=== PATIENT | male | born 1965 | race Caucasian/White ===

== ENCOUNTER 2019-01-17 11:10 | Emergency (ER) | payer BC, OTHER | END 2019-01-17 15:23 | disposition home or self-care (01) | LOC: JER 11:10 ==

== ENCOUNTER 2019-01-18 20:49 | Emergency (ER) | payer BC | END 2019-01-19 00:15 | disposition home or self-care (01) | LOC: JER 01-19 00:15 | PROC: 3E0333Z Introduction of Anti-inflammatory into Peripheral Vein, Percutaneous Approach (ICD-10-PCS; principal; 2019-01-18) | DX: N23 Unspecified renal colic (principal); Z87.442 Personal history of urinary calculi ==

== ENCOUNTER 2019-07-04 08:38 | Day surgery (SDC) | payer BC, OTHER ==
[2019-07-04 09:15] VITALS: BMI 26.6
[2019-07-04 10:37] VITALS: TEMP 97.9
[2019-07-04 12:13] VITALS: BP 120/79; PULSE 63
--- NOTE | 2019-07-09 18:35 | PATH ---
Surgical Pathology Report Patient Name: SKYLER CLINE [facility]. Rec. #: [id number] /Age/Gender: 1965 (Age: 53) / M Account: [id number] Location: [facility]-ENDOSCOPY Taken: 07/04/2019 Received: 07/06/2019 Reported: 07/09/2019 Physicians: Sundeep Ott M.D. Specimen(s) Received A: BX DUODENUM SECOND PORTION AND BULB B: BX ANTRUM C: BX GE JUNCTION D: BX MID ESOPHAGUS E: BX SIGMOID Clinical History Dysphagia, left upper quadrant pain, heartburn, lower abdominal pain, screening colonoscopy Postoperative diagnosis: Gastritis, duodenitis, small hiatal hernia, normal colon Final Diagnosis A. SECOND PORTION AND BULB OF DUODENUM, BIOPSY: DUODENAL MUCOSA WITH FOCAL NONSPECIFIC CHRONIC DUODENITIS. NO HISTOLOGIC EVIDENCE OF CELIAC DISEASE. B. ANTRUM, BIOPSY: GASTRIC MUCOSA WITH CHRONIC GASTRITIS. REACTIVE GASTROPATHY PRESENT. IMMUNOSTAIN FOR H. PYLORI IS NEGATIVE. NEGATIVE FOR INTESTINAL METAPLASIA. C. GE JUNCTION, BIOPSY: COLUMNAR/SQUAMOUS JUNCTIONAL MUCOSA WITH ACUTE AND CHRONIC INFLAMMATION, AND CHANGES CONSISTENT WITH REFLUX ESOPHAGITIS. NEGATIVE FOR INTESTINAL METAPLASIA. D. MID ESOPHAGUS, BIOPSY: SQUAMOUS (ESOPHAGEAL) MUCOSA WITH NO SIGNIFICANT PATHOLOGIC CHANGE. NO HISTOLOGIC EVIDENCE OF EOSINOPHILIC ESOPHAGITIS. E. SIGMOID COLON, BIOPSY: COLONIC MUCOSA WITH NO SIGNIFICANT PATHOLOGIC CHANGE. Electronically Signed Arnaud See M.D. Gross Description A. Received in formalin, labeled "second portion and bulb of duodenum biopsy" are 3 cole, irregular portions of soft tissue ranging from 0.4-0.7 cm. in greatest dimension. The specimens are submitted in toto in one cassette. B. Received in formalin, labeled "antrum biopsy" are 4 cole, irregular portions of soft tissue ranging from 0.2-0.6 cm. in greatest dimension. The specimens are submitted in toto in one cassette. C. Received in formalin, labeled "GE junction biopsy" are 5 cole, irregular portions of soft tissue ranging from 0.1-0.5 cm. in greatest dimension. The specimens are submitted in toto in one cassette. D. Received in formalin, labeled "mid esophagus biopsy" are 2 cole, irregular portions of soft tissue averaging 0.3 cm. in greatest dimension. The specimens are submitted in toto in one cassette. E. Received in formalin, labeled "sigmoid colon biopsy" are 3 cole, irregular portions of soft tissue averaging 0.2 cm. in greatest dimension. The specimens are submitted in toto in one cassette. 07/06/2019 located within [facility]07/06/2019
== END 2019-07-04 12:10 | disposition home or self-care (01) ==
LOC: JASU-ENDO 08:38
PROVIDERS: ATTEND Internal Medicine Gastroenterology
PROC: 0DB38ZX Excision of Lower Esophagus, Via Natural or Artificial Opening Endoscopic, Diagnostic (ICD-10-PCS; 2019-07-04)
PROC: 0DB28ZX Excision of Middle Esophagus, Via Natural or Artificial Opening Endoscopic, Diagnostic (ICD-10-PCS; 2019-07-04)
PROC: 0DBN8ZX Excision of Sigmoid Colon, Via Natural or Artificial Opening Endoscopic, Diagnostic (ICD-10-PCS; principal; 2019-07-04 09:30)
DX: Z12.11 Encounter for screening for malignant neoplasm of colon (principal); K64.8 Other hemorrhoids; K21.9 Gastro-esophageal reflux disease without esophagitis; K29.70 Gastritis, unspecified, without bleeding; K29.80 Duodenitis without bleeding
CPT/HCPCS: 88305-TC; 88342-TC